=== PATIENT | male | born 1960 | race Caucasian/White ===

== ENCOUNTER 2016-11-17 15:30 | Emergency (ER) | payer MEDICAID, OTHER ==
[~2016-11-17] VITALS: Ht 182.9 cm; Wt 75.0 kg
[~2016-11-17 15:30] MED LIST: BUSP10TA PO; CALCTAB80 PO; CETI1TAB39 PO; COMPRESSOR NEBU1 MIS; DILT120T PO; FLUT1SPR5 EACH NARE; GABA300C5 PO; MONT10TA4 PO; MULT-135 PO; OMEP20CA2 PO; Oxygen Concentrator; SYMB160A INH; TRAZ150T75 PO; Z.0.OXYGEN INH; ZANA4CAP PO; ZOCO80TA PO
[2016-11-17 15:32] VITALS: BP 138/83; PULSE 87; RESP 12; TEMP 97.6; O2SAT 96
--- NOTE | 2016-11-17 16:40 | PD ---
HPI Chief Complaint: Medical Clearance Time Seen by Provider: 16:39 Travel History International Travel<30 days: No Contact w/Intl Traveler<30days: No Traveled to known affect area: No History of Present Illness HPI Patient comes in for evaluation of right ankle fracture originally occurred back in July of last year. Patient states his cast that he has been wearing broke approximately a month ago but has not been able to follow up with orthopedics secondary to issues with insurance. Patient states saw his primary care doctor today who recommended he come to the emergency department to have it re-x-rayed. Patient denies any pain and has been walking in the cast with a postop shoe without pain. Denies any numbness or tingling or new injuries. PFSH Past Medical History Arthritis: Yes Asthma: No Autoimmune Disease: No Anxiety: Yes Depression: No Heart Rhythm Problems: No Cancer: Yes Cardiovascular Problems: Yes High Cholesterol: No Chemotherapy: Yes Chest Pain: No Congestive Heart Failure: No COPD: Yes Cerebrovascular Accident: No Diabetes: No Diminished Hearing: No Endocrine: No Gastrointestinal Disorders: Yes (CONSTIPATION) GERD: No Genitourinary: No Hepatitis: No Hiatal Hernia: No Hypertension: Yes Immune Disorder: No Kidney Stones: No Musculoskeletal: Yes Neurologic: Yes Psychiatric: Yes Reproductive: Yes Respiratory: Yes Radiation Therapy: Yes Renal Failure: No Seizures: No Sickle Cell Disease: No Sleep Apnea: No Thyroid Disease: No Ulcer: No Past Surgical History Abdominal Surgery: Yes (appendectomy) AICD: No Arteriovenous Shunt: No Body Medical Devices: spinal stimulator Cardiac Surgery: No Ear Surgery: No Endocrine Surgery: No Eye Surgery: No Genitourinary Surgery: Yes (right hernia repair/canal implant) Gynecologic Surgery: No Insulin Pump: No Joint Replacement: No Pacemaker: No Thoracic Surgery: Yes (Lung resection for squamous cell CA) Other Surgery: Yes Social History Alcohol Use: Yes (OCCASIONALLY, LAST USED TODAY) Tobacco Use: No Substance Use: No Allergies-Medications (Allergen,Severity, Reaction): Coded Allergies: Lyrica (Verified Allergy, Severe, throat swelling , 11/17/16) Reported Meds & Prescriptions Reported Meds & Active Scripts Active Trazodone (Trazodone HCl) 150 Mg Tab 150 Mg PO HS Symbicort Inh (Budesonide/Formoterol Fumarate) 160-4.5 Mcg/Act Aero 2 Puff INH Q12HR Gabapentin 300 Mg Cap 900 Mg PO TID Zanaflex (Tizanidine HCl) 4 Mg Cap 4 Mg PO EVERY 8 HOURS PRN Zyrtec Allergy (Cetirizine HCl) 10 Mg Tab 10 Mg PO DAILY Buspirone (Buspirone HCl) 10 Mg Tab 10 Mg PO BID Diltiazem (Diltiazem HCl) 120 Mg Tab 120 Mg PO DAILY Flonase Allergy Relief Nasal [place] (Fluticasone Nasal [place]) 50 Mcg/Act [place] 50 Mcg EACH NARE BID Reported Senna S (Sennosides-Docusate Sodium) 8.6-50 Mg Tab 1 Tab PO DAILY PRN Duloxetine DR (Duloxetine HCl) 20 Mg Capdr 20 Mg PO DAILY @ 1500 Magnesium 250 Mg Tab 250 Mg PO DAILY Colace (Docusate Sodium) 100 Mg Cap 100 Mg PO HS Aspir-81 (Aspirin) 81 Mg Tabdr 81 Mg PO HS Zocor (Simvastatin) 80 Mg Tab 80 Mg PO HS Multi Vitamin (Multiple Vitamin) 1 Tab Tab 1 Tab PO DAILY Montelukast (Montelukast Sodium) 10 Mg Tab 10 Mg PO DAILY Calcium 1000 + D (Calcium Carbonate-Cholecalciferol) 1,000-800 Mg-Unit Tab 1 Tab PO BID Review of Systems Except as stated in HPI: all other systems reviewed are Neg Physical Exam Narrative GENERAL: Well-developed, well nourished, in no acute distress, and non-ill appearing. SKIN: Warm and dry. HEAD: Atraumatic. Normocephalic. EYES: Pupils equal and round. EOMI. No scleral icterus. No injection or drainage. ENT: No nasal bleeding or discharge. Mucous membranes pink and moist. NECK: Trachea midline. Supple. No nuclear rigidity. CARDIOVASCULAR: Dorsal pulses 2+ intact bilaterally. Capillary refill less than 2 seconds. No pedal edema. RESPIRATORY: No accessory muscle use. No respiratory distress. MUSCULOSKELETAL: No obvious deformities. No clubbing. No cyanosis. No edema. Full range of motion. After cast was removed ankle was evaluated. Ankle: Neagative anterior draw and Paige test. Negative Cadence's sign. No laxity noted with passive inversion and eversion of BL ankles. Negative squeeze test. Pulses equal BL distal to injury. Capillary refill less than 2 seconds distal to injury and equal BL. Sensation equal BL 1st web space. FROM of toes distal to injury and equal BL. NV intact distal to injury and equal BL. Dorsal pulses equal BL. Patient denies any pain to palpation. NEUROLOGICAL: Awake and alert. No obvious cranial nerve deficits. Motor grossly within normal limits. Normal speech. PSYCHIATRIC: Appropriate mood and affect; insight and judgment normal. Data Data Last Documented VS Vital Signs Date Time Temp Pulse Resp B/P Pulse Ox O2 Delivery O2 Flow Rate FiO2 11/17/16 15:32 97.6 87 12 138/83 96 Room Air Orders Ankle, Complete ([id number]) (11/17/16 ) [facility] Medical Decision Making Medical Screen Exam Complete: Yes Emergency Medical Condition: No Differential Diagnosis Fracture, cast removal, sprain, other Narrative Course Patient was offered cam boot or postop shoe. Patient does not wish either these at this time as he states he has both of them already and denies any pain with standing walking or anywhere throughout his ankle or foot. Patient in no obvious distress upon re-evaluation. All pertinent Radiology result(s) discussed with patient/family. Discussed patient with Dr. Michaud, who is in agreement with plan of care and disposition. Any questions/concerns in reference to patient diagnosis/condition discussed and clarified prior to patient's discharge. Reinforced sheer importance of close follow up with patient 's primary physician or primary care clinic and/or orthopedics. Instructed patient to return to ED immediately, if symptoms return/worsen. Pt showed understanding of above instructions. Further instructions and recommendations were detailed in discharge paperwork. Pt ambulated without difficulty out of ED at discharge. Diagnosis Primary Impression: Orthopedic cast removal Patient Instructions: General Instructions Additional Instructions: Follow-up with your primary care physician and/or orthopedics this week for reevaluation. Return to the emergency department if symptoms get worse. Disposition: 01 DISCHARGE HOME Condition: Stable Jose Hopkins Nov 17, 2016 16:40
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
[2016-11-17] MEDS ORDERED: ASPI81TA81 PO (16:56)
[2016-11-17] MEDS ORDERED: DULO1CAP PO (16:56)
[2016-11-17] MEDS ORDERED: COLA100C3 PO (16:56)
[2016-11-17] MEDS ORDERED: ESSE250T PO (16:56)
[2016-11-17] MEDS ORDERED: SENN8.6T8 PO (16:56)
[2016-12-27] MEDS ORDERED: ADVA500A INH (02:35)
[2016-12-30] MEDS ORDERED: FLUT1SPR5 EACH NARE (10:24)
[2016-12-30] MEDS ORDERED: DULO1CAP PO (11:55)
[2016-12-31] MEDS ORDERED: DULO1CAP PO (15:56)
[2016-12-31] MEDS ORDERED: GABA300C5 PO (15:56)
[2016-12-31] MEDS ORDERED: ZOCO80TA PO (15:56)
[2017-01-20] MEDS ORDERED: ZANA4CAP PO (12:14)
[2017-01-21] MEDS ORDERED: ALBUAER3 INH (15:41)
[2017-01-29] MEDS ORDERED: FLUT1SPR5 EACH NARE (12:03)
[2017-02-03] MEDS ORDERED: TRAZ150T75 PO (14:15)
[2017-02-03] MEDS ORDERED: BUSP10TA PO (14:15)
[2017-02-18] MEDS ORDERED: DULO1CAP PO (21:42)
[2017-03-02] MEDS ORDERED: GABA300C5 PO (15:21)
[2017-03-03] MEDS ORDERED: ALBUAER3 INH (12:00)
[2017-03-03] MEDS ORDERED: BUSP10TA PO (12:00)
[2017-03-03] MEDS ORDERED: GABA300C5 PO (12:00)
[2017-03-24] MEDS ORDERED: ZANA4CAP PO (14:09)
[2017-03-24] MEDS ORDERED: TRAZ150T75 PO (14:10)
[2017-03-30] MEDS ORDERED: MONT10TA4 PO (13:50)
[2017-03-30] MEDS ORDERED: LEVO750T33 PO (13:53)
[2017-03-30] MEDS ORDERED: ADVA500A INH (13:55)
== END 2016-11-17 18:49 | disposition home or self-care (01) ==
LOC: NEPB 15:30
DX: S82.899D Other fracture of unspecified lower leg, subsequent encounter for closed fracture with routine healing (principal); J44.9 Chronic obstructive pulmonary disease, unspecified; I10 Essential (primary) hypertension; X58.XXXD Exposure to other specified factors, subsequent encounter
CPT/HCPCS: 73610; 99283